=== PATIENT | female | born 1955 | race Caucasian/White ===

== ENCOUNTER 2018-12-26 11:40 | Emergency (ER) | payer MEDICARE ==
[~2018-12-26] VITALS: Ht 167.6 cm; Wt 74.8 kg
[~2018-12-26 11:40] MED LIST: CALCIUM500 MG PO; ESTRADIOL0.5 MG PO; FLAX OIL1000 MG PO; HYDROCODON-ACE1 EA10 PO; IBUPROFEN800 MG PO; LEVOTHYROXINE50 MCG PO; PERCOCET 5-3251 EACH PO; PREDNISONE20 MG PO; SIMVASTATIN20 MG PO; SOMA350 MG PO; VENLAFAXINE HCL75 MG PO; ZONEGRAN25 MG PO
[2018-12-26] MEDS ORDERED: GABAPENTIN600 MG PO (12:05)
== END 2018-12-26 13:18 | disposition home or self-care (01) ==
LOC: ED 11:40
DX: S83.92XA Sprain of unspecified site of left knee, initial encounter (principal); Z90.710 Acquired absence of both cervix and uterus; Z79.899 Other long term (current) drug therapy; V69.9XXA Occupant (driver) (passenger) of heavy transport vehicle injured in unspecified traffic accident, initial encounter
CPT/HCPCS: 73560; 99283

== ENCOUNTER 2023-10-30 06:47 | Day surgery (SDC) | payer OTHER, MEDICARE ==
[2023-10-29 15:03] VITALS: BP 134/90
[~2023-10-30] VITALS: Ht 167.6 cm; Wt 81.8 kg
[~2023-10-30 06:47] MED LIST changes: +ALLER-TEC10 MG PO; +CELEBREX100 MG PO; +GABAPENTIN600 MG PO; +HYDROCODON-ACE1 EA11 PO; +IBU400 MG PO; +OSTERA TABLET1 EACH PO
[2023-10-30 07:18] VITALS: BP 129/70
[2023-10-30] MEDS ORDERED: VITAMIN D3125 MC1 PO (07:19)
--- NOTE | 2023-10-30 07:45 | NUR ---
ROUNDS. PT EXHIBITED LOW ANXIETY; DEMONSTRATED OPTIMISTIC OUTLOOK. FACILITATED STORY-TELLING; PROVIDED SUPPORTIVE PRESENCE; PROVIDED PRAYER. PT EXPRESSED GRATITUDE.
[2023-10-30] MEDS ORDERED: HYDROCODON-ACE1 EA11 PO (09:56)
[2023-10-30] MEDS ORDERED: CELECOXIB200 MG PO (09:56)
--- NOTE | 2023-10-30 09:57 | NUR ---
10/30/23 0957 [place] PT TO PACU AWAKE, ON ROOM AIR, DENIES PAIN AND NAUSEA.
[2023-10-30 10:58] VITALS: BP 131/72
--- NOTE | 2023-10-30 11:01 | NUR ---
LE 1050: PT IS BACK TO DS FROM PACU. SHE IS REPORTING MINIMAL PAIN, BUT TOLERABLE. SO IS AT THE BEDSIDE. CALL LIGHT WITHIN REACH. WATER ON BEDSIDE TABLE. PT WOULD LIKE CHOCOLATE PUDDING AND SALTINE CRACKERS. SHE WOULD ALSO LIKE COFFEE. DC CRITERIA REVIEWED.
[2023-10-30 11:54] VITALS: BP 135/76
--- NOTE | 2023-10-30 11:55 | NUR ---
LE 1150: PT IS DOING WELL. SHE IS TOLERATING WATER, CRACKERS, AND PUDDING. SHE REPORTS PAIN 3/10, REQUESTING A PAIN PILL. CALL LIGHT WITHIN REACH. NO ADDITIONAL NEEDS AT THIS TIME.
--- NOTE | 2023-10-30 12:30 | NUR ---
LE 1215: PT IS UP TO USE THE BATHROOM. SHE AMBULATES INDEPENDENTLY TO AND FROM THE BATHROOM. SHE IS ABLE TO VOID 325ML OF DARK YELLOW URINE. LE 1223: PT AND SO ARE GIVEN VERBAL AND WRITTEN DC INSTRUCTIONS. THEY BOTH VERBALIZE UNDERSTANDING. NO QUESTIONS ARE ASKED AT THIS TIME. SHE IS EDUCATED ON HOW TO BEST DRESS HERSELF AND TO OPEN HER CURTAIN WHEN SHE IS READY.
--- NOTE | 2023-10-30 12:51 | NUR ---
LE 1240: PT IS TAKEN TO PERSONAL VEHICLE VIA . SHE IS ABLE TO TRANSER HERSELF WITHOUT ISSUES.
--- NOTE | 2023-11-01 07:02 | OR ---
[facility] [address] [place], [place] [address] Signed DATE OF OPERATION: 10/30/2023 SURGEON: Jesus Manuel West MD PREOPERATIVE DIAGNOSIS: Displaced left olecranon fracture. POSTOPERATIVE DIAGNOSIS: Displaced left olecranon fracture. PROCEDURE PERFORMED: Open reduction and internal fixation of left olecranon. VIDEO POKER FLOORMAN: None. ANESTHESIA: General. ESTIMATED BLOOD LOSS: None. TOURNIQUET TIME: 43 minutes. IMPLANTS: Two K-wires and a 1.7 cable. BRIEF HISTORY: Sebastián is a 68-year-old female who suffered a ground level fall fracturing her olecranon with wide displacement. Risks and benefits of operative treatment were discussed with her and she elected to proceed. PROCEDURE IN DETAIL: Once consent was obtained, she was taken to the operating room. After adequate anesthesia, she was placed on operating room table with a hand table. The arm was then placed in a well-padded proximal arm tourniquet and prepped and draped in a standard sterile fashion. The arm was exsanguinated using Esmarch bandage, tourniquet inflated to 200 mmHg. The elbow was approached through a standard curvilinear incision posteriorly. This was carried through skin and subcutaneous tissue and directly down on Electronically Signed By: JESUS MANUEL WEST MD 11/01/23 0702 PATIENT NAME: SEBASTIÁN DOMINGUEZ POLLOCK OPERATIVE REPORT DATE OF : 55 REPORT #: [id number] PHYSICIAN: JESUS MANUEL WEST MD PCP: CAMI BANEGAS DO REPORT IS CONFIDENTIAL AND NOT TO BE RELEASED WITHOUT AUTHORIZATION [facility] [address] [place], [place] [address] Signed the ulna. The fracture was readily identifiable. It was then cleaned of all debris, small fragments. We then irrigated the joint and cleaned out any debris that we could find. Once this was completed, the fracture was reduced and held with a tenaculum. This was checked using image intensifier and found to be satisfactory. Two K-wires were then passed from the tip of the olecranon along the articular margin engaging the body of the ulna proximally. The 2.0 drill hole was then made distal to the fracture and the 1.7 cable was threaded through this hand in a standard [id number] brought proximally. Using a 14-gauge needle, the cable was then passed through the triceps tendon proximal to the two K-wires. This was done right at the olecranon. The cable was then placed through the cable clamp and tensioned to 40 kg of pressure. The cable clamp was then tightened and the cable was cut. The fracture was quite stable on examination. The hardware was low-profile. Once this was completed, the wound was copiously irrigated with antibiotic solution and the subcutaneous tissue was closed with 2-0 Monocryl followed by 0 Stratafix. The skin was closed with whitney and dressed with Allevyn dressing, sterile cast padding and posterior splint. She tolerated the procedure well. All sponge, needle, and instrument counts were correct. Jesus Manuel West MD BA/MODL /[id number] Copies: ~ Electronically Signed By: JESUS MANUEL WEST MD 11/01/23 0702 PATIENT NAME: DOMINGUEZ,TERRI POLLOCK OPERATIVE REPORT DATE OF : 55 REPORT #: [id number] PHYSICIAN: JESUS MANUEL WEST MD PCP: CAMI BANEGAS DO REPORT IS CONFIDENTIAL AND NOT TO BE RELEASED WITHOUT AUTHORIZATION
== END 2023-10-30 12:40 | disposition home or self-care (01) ==
LOC: DS 06:47
PROVIDERS: ATTEND Specialist
PROC: 0PSL04Z Reposition Left Ulna with Internal Fixation Device, Open Approach (ICD-10-PCS; principal; 2023-10-30 08:45)
DX: S52.022A Displaced fracture of olecranon process without intraarticular extension of left ulna, initial encounter for closed fracture (principal); F32.A Depression, unspecified; E78.00 Pure hypercholesterolemia, unspecified; Z79.899 Other long term (current) drug therapy; W18.30XA Fall on same level, unspecified, initial encounter
CPT/HCPCS: 73070; 80048; 85025; A9270; J0131; J0690; J1100; J2001; J2250; J2405; J2704; J2795; J3010; J7121